=== PATIENT | male | born 1990 | race Two or more races ===

== ENCOUNTER 2016-08-17 11:43 | Emergency (ER) | payer OTHER ==
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
== END 2016-08-17 13:31 | disposition home or self-care (01) ==
LOC: ED 11:43
DX: S80.02XA Contusion of left knee, initial encounter (principal); V89.2XXA Person injured in unspecified motor-vehicle accident, traffic, initial encounter; Y92.410 Unspecified street and highway as the place of occurrence of the external cause